=== PATIENT | male | born 1950 | race Native Hawaiian/Other Pacific Islander ===

== ENCOUNTER → 2018-05-22 08:20 | Outpatient (CLI) | payer OTHER, SELFPAY ==
[2018-05-22 09:13] LABS: Add Manual Diff / Slide Review NO; Hematocrit 45.8 % (41-53); Hemoglobin 15.3 g/dL (13.5-17.5); Mean Corpuscular HGB Conc 33.4 % (30-36); Mean Corpuscular Hemoglobin 29.7 PG (26-34); Mean Corpuscular Volume 88.8 fL (80-100); Monocytes Percent Auto 7.6 % (3-14); Neutrophils Absolute Auto 3300 /uL (3000-5900); Neutrophils Percent Auto 64.4 % (50-75); Platelet Count 213 X10^3/uL (150-400); Red Blood Cell Count 5.16 X10^6/uL (4.5-5.9); Red Cell Distribution Width 13.1 % (11.6-14.8); White Blood Cell Count 5.1 X10^3/uL (4.5-11.0)
[2018-05-22 10:29] LABS: Alanine Aminotransferase 35 IU/L (21-72); Albumin 4.2 g/dL (3.5-5.0); Albumin Globulin Ratio 1.2 (1.0-2.8); Alkaline Phosphatase 116 U/L (38-126); Aspartate Aminotransferase 31 IU/L (17-59); Bilirubin Total 0.5 mg/dL (0.2-1.3); Blood Urea Nitrogen 23 mg/dL (9-20); Calcium 9.2 mg/dL (8.4-10.2); Carbon Dioxide 31 mmol/L (22-32); Chloride 103 mmol/L (98-107); Cholesterol 235 mg/dL (140-199); Estimated Glomerular Filt Rate > 60.0 mL/min (>60); Globulin 3.5 g/dL (1.7-4.1); Glucose 101 mg/dL (80-110); HDL Cholesterol 36 mg/dL (40-60); HEMOLYSIS < 15 (0-50); LDL Cholesterol Calculated 164 mg/dL (<100); Potassium 4.5 mmol/L (3.4-5.1); Sodium 141 mmol/L (137-145); Total Protein 7.7 g/dL (6.3-8.2); Triglycerides 173 mg/dL (35-150)
[2018-05-22 10:57] LABS: Prostate Specific Antigen Scrn 3.65 ng/mL (0.1-4.0)
[2018-05-22 12:19] LABS: TSH w/ Reflex to FT4 2.31 uIU/mL (0.47-4.68)
== END ==
PROVIDERS: PCP Family Medicine; Visit Provider Family Medicine
DX: E78.00 Pure hypercholesterolemia, unspecified (principal); E88.81 Metabolic syndrome and other insulin resistance; N18.2 Chronic kidney disease, stage 2 (mild); Z12.5 Encounter for screening for malignant neoplasm of prostate; Z00.01 Encounter for general adult medical examination with abnormal findings
CPT/HCPCS: 36415; 80053; 80061; 84443; 85025; G0103

== ENCOUNTER → 2019-07-08 09:27 | Outpatient (CLI) | payer OTHER, SELFPAY ==
[2019-07-08 10:07] LABS: Add Manual Diff / Slide Review NO; Basophils Absolute Auto 100 /uL (0-100); Basophils Percent Auto 1.1 % (0-2); Eosinophils Absolute Auto 100 /uL (0-450); Eosinophils Percent Auto 2.4 % (2-4); Hematocrit 46.2 % (41-53); Hemoglobin 15.4 g/dL (13.5-17.5); Lymphocytes Absolute Auto 1000 /uL (1100-4500); Lymphocytes Percent Auto 21.4 % (25-40); Mean Corpuscular HGB Conc 33.3 % (30-36); Mean Corpuscular Hemoglobin 29.8 PG (26-34); Mean Corpuscular Volume 89.5 fL (80-100); Monocytes Absolute Auto 400 /uL (0-900); Monocytes Percent Auto 7.3 % (3-14); Neutrophils Absolute Auto 3300 /uL (1500-7000); Neutrophils Percent Auto 67.8 % (50-75); Platelet Count 214 X10^3/uL (150-400); Red Blood Cell Count 5.16 X10^6/uL (4.5-5.9); Red Cell Distribution Width 13.7 % (11.6-14.8); White Blood Cell Count 4.9 X10^3/uL (4.5-11.0)
[2019-07-08 10:17] LABS: HDL Cholesterol 34 mg/dL (40-60); Triglycerides 356 mg/dL (35-150)
[2019-07-08 10:28] LABS: Cholesterol 346 mg/dL (140-199); LDL Cholesterol Calculated 241 mg/dL (<100)
[2019-07-08 11:11] LABS: Thyroid Stimulating Hormone 2.13 uIU/mL (0.47-4.68)
== END ==
PROVIDERS: PCP Family Medicine; Visit Provider Family Medicine
DX: E78.00 Pure hypercholesterolemia, unspecified (principal); N18.2 Chronic kidney disease, stage 2 (mild); Z00.01 Encounter for general adult medical examination with abnormal findings
CPT/HCPCS: 36415; 80061; 84443; 85025

== ENCOUNTER → 2021-03-17 09:29 | Outpatient (CLI) | payer OTHER, SELFPAY ==
[2021-03-17 10:01] LABS: Add Manual Diff / Slide Review NO; Basophils Absolute Auto 0 /uL (0-100); Basophils Percent Auto 1.1 % (0-2); Eosinophils Absolute Auto 100 /uL (0-450); Eosinophils Percent Auto 2.1 % (2-4); Hematocrit 46.7 % (41-53); Hemoglobin 15.5 g/dL (13.5-17.5); Lymphocytes Absolute Auto 900 /uL (1100-4500); Lymphocytes Percent Auto 20.6 % (25-40); Mean Corpuscular HGB Conc 33.2 % (30-36); Mean Corpuscular Hemoglobin 29.7 PG (26-34); Mean Corpuscular Volume 89.5 fL (80-100); Monocytes Absolute Auto 300 /uL (0-900); Monocytes Percent Auto 6.7 % (3-14); Neutrophils Absolute Auto 3000 /uL (1500-7000); Neutrophils Percent Auto 69.5 % (50-75); Red Blood Cell Count 5.22 X10^6/uL (4.5-5.9); Red Cell Distribution Width 13.8 % (11.6-14.8); White Blood Cell Count 4.3 X10^3/uL (4.5-11.0)
[2021-03-17 10:22] LABS: Alanine Aminotransferase 21 IU/L (<50); Albumin 4.5 g/dL (3.5-5.0); Albumin Globulin Ratio 1.4 (1.0-2.8); Alkaline Phosphatase 114 U/L (38-126); Aspartate Aminotransferase 30 IU/L (17-59); BUN Creatinine Ratio 16.7 (6-22); Bilirubin Total 0.5 mg/dL (0.2-1.3); Blood Urea Nitrogen 19 mg/dL (9-20); Calcium 10.1 mg/dL (8.4-10.2); Carbon Dioxide 22 mmol/L (22-32); Chloride 103 mmol/L (98-107); Estimated Glomerular Filt Rate > 60.0 mL/min (>60); Globulin 3.3 g/dL (1.7-4.1); Glucose 105 mg/dL (80-110); HDL Cholesterol 43 mg/dL (40-60); HEMOLYSIS < 15 (0-50); Potassium 4.8 mmol/L (3.4-5.1); Sodium 138 mmol/L (137-145); Total Protein 7.8 g/dL (6.3-8.2); Triglycerides 185 mg/dL (35-150)
[2021-03-17 10:32] LABS: Cholesterol 360 mg/dL (140-199); LDL Cholesterol Calculated 280 mg/dL (<100)
[2021-03-17 10:54] LABS: Platelet Count 200 X10^3/uL (150-400)
== END ==
PROVIDERS: PCP Student in an Organized Health Care Education/Training Program; Referring Provider Student in an Organized Health Care Education/Training Program; Visit Provider Student in an Organized Health Care Education/Training Program
DX: Z00.00 Encounter for general adult medical examination without abnormal findings (principal); E78.49 Other hyperlipidemia
CPT/HCPCS: 36415; 80053; 80061; 85025